=== PATIENT | male | born 1985 | race Caucasian/White ===

== ENCOUNTER 2016-10-20 14:21 | Emergency (ER) | payer MEDICAID ==
[~2016-10-20] VITALS: Ht 167.6 cm; Wt 89.5 kg
[~2016-10-20 14:21] MED LIST: NO MEDS PER PT
[2016-10-20 14:26] VITALS: Ht 167.6 cm; Wt 89.5 kg
--- NOTE | 2016-10-20 15:23 | ERD ---
ER Documentation Chief Complaint Date/Time DATE: 10/20/16 TIME: 15:20 Chief Complaint cough and chest pain x 4 days HPI 31-year-old male otherwise healthy comes in with cough and chest pain for 4 days. Patient describes no pain at rest, he develops any chest pain every time he takes a deep breath in or out coughs, or moves his shoulder. He denies any shortness of breath, diaphoresis or nausea vomiting. Denies fevers or chills. He smokes once a month for the past 6 years, no leg pain, leg swelling, malignancies, immobilizations, recent surgeries or history of blood clots. ROS All systems reviewed and are negative except as per history of present illness. Medications Home Meds Active Scripts Naproxen* (Naprosyn*) 500 Mg Tablet, 500 MG PO BID Y for PAIN AND/OR INFLAMMATION, #30 TAB Prov:ABRAHAM CONTRERAS PA-C 10/20/16 Reported Medications [No Meds Per Pt] No Conflict Check 01/25/11 Allergies Allergies: Coded Allergies: No Known Allergy (Verified Allergy, Mild, 01/25/11) No Known Drug Allergy (Verified Allergy, Mild, 11/20/10) PMhx/Soc History of Surgery: Yes (LAC TO TONGUE OVER 8 YRS) Anesthesia Reaction: No Hx Neurological Disorder: No Hx Respiratory Disorders: No Hx Cardiac Disorders: No Hx Psychiatric Problems: No Hx Miscellaneous Medical Probl: No Hx Alcohol Use: Yes (12 BEERS/DAY) Hx Substance Use: No Hx Tobacco Use: No Smoking Status: Never smoker Physical Exam Vitals Vital Signs Date Time Temp Pulse Resp B/P Pulse Ox O2 Delivery O2 Flow Rate FiO2 10/20/16 14:26 97.6 82 20 134/88 99 Physical Exam General: Well-developed, well-nourished. The patient appears in no acute distress. HEENT: Head is normocephalic, atraumatic. No scleral icterus. Pupils are equal , round, and reactive. Oral mucous membranes are moist. No pharyngeal erythema. Neck: Supple. Nontender. Lungs: Clear to auscultation. Normal air movement. Heart: Regular rate and rhythm. S1 and S2 are normal. No murmurs, gallops, or rubs. Chest: Symmetrical chest movement, tenderness to palpation on the left chest anterior wall and reproducible with left shoulder manipulation. No rashes. Abdomen: Soft, nontender, nondistended. Bowel sounds are normoactive. Extremities: No clubbing or cyanosis. Normal pulses. Moving extremities x 4. No weakness. Neurologic: Alert and oriented 3. No focal deficits. Skin: Normal turgor. No rash or lesions. Results 24 hrs Current Medications Medications (Trade) Dose Ordered Sig/Lesley Route PRN Reason Start Time Stop Time Status Last Admin Dose Admin Ibuprofen (Motrin) 800 mg ONCE ONCE PO 10/20/16 15:30 10/20/16 15:31 DC 10/20/16 15:22 Procedures/MDM 12-lead EKG(interpreted by supervising physician): Dr. Ojeda Rate/Rhythm: Normal Sinus Rhythm, rate of 79 QRS, ST, T-waves: No changes consistent w/ acute ischemia, no intervals, no dysrhythmias, no ectopy Impression: No evidence of ischemia or arrhythmia Patient was medicated with ibuprofen 800 mg p.o. PERC Criteria Assessment: Age > 50: No HR > 100: No 02 < 95%: No H/o DVT/PE: No Recent trauma/surgery: No Hemoptysis: No Exogenous Estrogen: No Unilateral Leg swelling: No Pretest probability > 15%: No Less than 2% risk of PE. No further work up is necessary MDM: 31-year-old male comes in with chest pain and cough, patient's history and physical examination is consistent with chest wall pain, likely costochondritis. Other differentials considered however unlikely include ACS, pulmonary embolus. Patient's PERC score is 0, my suspicion for pulmonary embolus is low. Chest X-ray 1V Interpreted by me and the radiologist: Soft Tissue: No acute abnormalities Bones: No acute abnormalities Mediastinum/Cardiac Silhouette/Lungs: No acute abnormalities 31-year-old male comes to emergency room with left-sided chest pain associated with a cough. His EKG shows normal sinus rhythm, no ectopy or ischemic changes , chest x-ray is unremarkable. Patient's chest pain is to be a costochondral pain at his reproducible with palpation as well as shoulder movement and inspiration. He is PERC negative, I doubt pulmonary embolus at this time, dissection, acute coronary syndrome. Departure Diagnosis: Primary Impression: Cough Additional Impression: Chest pain Condition: Good ABRAHAM CONTRERAS PA-C Oct 20, 2016 15:23
[2016-10-20] MEDS ORDERED: IBUPROFEN 800 MG TAB PO ONE (15:30)
--- NOTE | 2016-10-20 15:46 | RADRPT ---
PROCEDURE: XR Chest. CLINICAL INDICATION: chest pain, cough TECHNIQUE: Single frontal view of the chest was obtained COMPARISON: None FINDINGS: The heart and mediastinum are within normal limits. The lungs are clear. There is no pleural effusion or pneumothorax. RPTAT: AA IMPRESSION: No acute disease. .Jose R Karimi MD, MD Date Time Electronically viewed and signed by .Jose R Karimi MD, on 10/20/2016 15:46 .S/
[2016-10-20] MEDS ORDERED: NAPR-260 PO (15:56)
== END 2016-10-20 16:38 | disposition home or self-care (01) ==
LOC: FTE 14:21
DX: R05 Cough (principal); R07.9 Chest pain, unspecified
CPT/HCPCS: 71010; 93005; Z7502; Z7610